=== PATIENT | male | born 1950 | race Caucasian/White ===

== ENCOUNTER 2017-01-17 10:00 | Emergency (ER) | payer OTHER ==
[~2017-01-17] VITALS: Ht 188 cm; Wt 101.1 kg
[~2017-01-17 10:00] MED LIST: ALPR0.5T6 PO; ASPI325T17 PO; HYDR4TAB48 PO; MELO15TA24 PO; METO25TA35 PO; OMEP20TA62 PO; OXYC5CAP2 PO
[2017-01-17 10:06] VITALS: BP 157/87
[2017-01-17] MEDS ORDERED: BACITRACIN ZINC OINT 500U/GM, 0.9 GM ONE (10:32)
[2017-01-17] MEDS ORDERED: DIPH,PERTUSS(ACELL),TET VAC/PF 0.5 ML IM-VACC ONE ×2 (10:32→11:00)
== END 2017-01-17 11:12 | disposition home or self-care (01) ==
LOC: ED 11:05
DX: S00.11XA Contusion of right eyelid and periocular area, initial encounter (principal); W01.0XXA Fall on same level from slipping, tripping and stumbling without subsequent striking against object, initial encounter; Y93.89 Activity, other specified; Y92.830 Public park as the place of occurrence of the external cause; Y99.9 Unspecified external cause status
CPT/HCPCS: 90471; 90715

== ENCOUNTER → 2017-07-26 | Outpatient (CLI) | payer OTHER | END | disposition home or self-care (01) | LOC: CFH 13:02 | PROVIDERS: ATTEND Internal Medicine Cardiovascular Disease | DX: G31.89 Other specified degenerative diseases of nervous system (principal); I63.9 Cerebral infarction, unspecified | CPT/HCPCS: 70551 ==